=== PATIENT | female | born 1930 | race Caucasian/White ===

== ENCOUNTER 2016-10-17 04:47 | Inpatient (IN) | payer MEDICARE ==
[~2016-10-17 04:47] MED LIST: ADULT LOW DOSE81 M1 PO; ALPRAZOLAM OD0.25 MG; Alprazolam; CALCIUM; EQL FISH OIL 1,1 CA1; EYE VITAMIN; LEVOTHYROXINE; NORCO 5/325 TAB1 TAB PO; PREMARIN42.5 GM; VITAMIN D400 UNI1; XANAX1 MG; [UNRECOGNIZED DRUG - REMARK]
[2016-10-17] MEDS ORDERED: LEVAQUIN500 M1 PO (05:54)
[2016-10-17] MEDS ORDERED: XANAX1 M1 PO (05:55)
[2016-10-17] MEDS ORDERED: TOPROL XL25 M1 PO (05:55)
[2016-10-17] MEDS ORDERED: SYNTHROID25 MC1 PO (05:56)
[2016-10-17] MEDS ORDERED: SERTRALINE HCL25 M3 PO (05:57)
[2016-10-17 05:58] LABS: HCT-HEMATOCRIT 35.1 % (34.0-49.0); HGB-HEMOGLOBIN 11.8 gm/dl (12.0-15.5); IMMATURE GRANULOCYTES ABSOLUTE 0.01 tho/cmm (0-0.03); IMMATURE GRANULOCYTES PERCENT 0.3 % (0-0.3); LYMPH ABSOLUTE COUNT 0.4 tho/cmm (0.8-4.5); MCH (MEAN CORPUSCULAR HGB) 29.1 pg (28.0-32.0); MCHC MEAN CORPUSCULAR HGB CONC 33.6 % (32.0-36.0); MCV (MEAN CELL VOLUME) 86.7 fl (82.0-96.0); MEAN PLATELET VOLUME 10.1 cmc (9.4-12.4); MONO % 11.7 % (0-12); MONOCYTE ABSOLUTE COUNT 0.4 tho/cmm (0.0-1.2); NEUTROPHIL ABSOLUTE COUNT 2.9 tho/cmm (1.6-8.0); NEUTROPHIL-AUTOMATED 2.9 tho/cmm (1.6-8.0); PLATELET COUNT 148 tho/cmm (150-450); RED BLOOD COUNT 4.05 mil/cmm (4.00-5.20); RED CELL DISTRIBUTION WIDTH 13.6 % (12.4-16.4); WHITE BLOOD COUNT 3.7 tho/cmm (4.0-10.0)
[2016-10-17 06:17] LABS: ANION GAP 12 mmol/L (0-20); BLOOD UREA NITROGEN 13 mg/dl (6-24); CALCIUM 8.2 mg/dl (8.5-10.5); CARBON DIOXIDE-VENOUS 28 mmol/L (22-32); CHLORIDE 97 mmol/l (96-110); CREATININE 0.84 mg/dl (0.50-1.10); GLUCOSE 118 mg/dL (70-110); POTASSIUM 3.9 mmol/L (3.7-5.1); SODIUM 133 mmol/L (135-145); eGFR VALUE FOR BLACK 73 mL/Min
[2016-10-17 08:14] LABS: MAGNESIUM 1.7 mg/dl (1.8-2.6)
[2016-10-17 08:17] LABS: TSH-THYROID STIMULATING HORM. 3.77 uIU/ml (0.40-3.80)
[2016-10-17 12:01] LABS: URINE BILIRUBIN NEGATIVE (NEG); URINE BLOOD NEGATIVE (NEG); URINE GLUCOSE (UA) NEGATIVE (NEG); URINE KETONE NEGATIVE (NEG); URINE LEUKOCYTE ESTERASE POSITIVE (NEG); URINE NITRITE NEGATIVE (NEG); URINE PROTEIN NEGATIVE (NEG)
[2016-10-17 12:03] LABS: URINE APPEARANCE CLEAR; URINE COLOR PALE YELLOW
[2016-10-17] MEDS ORDERED: LEVOTHYROXINE25 MC3 PO (12:09)
[2016-10-17 12:16] LABS: URINE EPITHELIAL CELLS 0-1 /[HPF] (0-10); URINE RBC 0 /[HPF] (0-5)
[2016-10-18 05:41] LABS: BASO % 0.4 % (0-2); HCT-HEMATOCRIT 35.3 % (34.0-49.0); HGB-HEMOGLOBIN 11.5 gm/dl (12.0-15.5); LYMPH % 41.7 % (20-45); MCH (MEAN CORPUSCULAR HGB) 28.8 pg (28.0-32.0); MCHC MEAN CORPUSCULAR HGB CONC 32.6 % (32.0-36.0); MCV (MEAN CELL VOLUME) 88.3 fl (82.0-96.0); MONO % 7.9 % (0-12); MONOCYTE ABSOLUTE COUNT 0.2 tho/cmm (0.0-1.2); NEUTROPHIL ABSOLUTE COUNT 1.2 tho/cmm (1.6-8.0); NEUTROPHIL-AUTOMATED 1.2 tho/cmm (1.6-8.0); PLATELET COUNT 144 tho/cmm (150-450); WHITE BLOOD COUNT 2.4 tho/cmm (4.0-10.0)
[2016-10-18 05:53] LABS: ANION GAP 11 mmol/L (0-20); BLOOD UREA NITROGEN 10 mg/dl (6-24); CALCIUM 7.8 mg/dl (8.5-10.5); CARBON DIOXIDE-VENOUS 26 mmol/L (22-32); CHLORIDE 107 mmol/l (96-110); CREATININE 0.63 mg/dl (0.50-1.10); GLUCOSE 84 mg/dL (70-110); POTASSIUM 3.7 mmol/L (3.7-5.1); SODIUM 140 mmol/L (135-145); eGFR VALUE FOR BLACK >90 mL/Min
[2016-10-20 04:50] LABS: BASO % 0.7 % (0-2); EOS % 1.1 % (0-7); HCT-HEMATOCRIT 35.5 % (34.0-49.0); HGB-HEMOGLOBIN 11.6 gm/dl (12.0-15.5); IMMATURE GRANULOCYTES ABSOLUTE 0.01 tho/cmm (0-0.03); IMMATURE GRANULOCYTES PERCENT 0.4 % (0-0.3); LYMPH % 52.4 % (20-45); LYMPH ABSOLUTE COUNT 1.4 tho/cmm (0.8-4.5); MCH (MEAN CORPUSCULAR HGB) 28.6 pg (28.0-32.0); MCHC MEAN CORPUSCULAR HGB CONC 32.7 % (32.0-36.0); MCV (MEAN CELL VOLUME) 87.4 fl (82.0-96.0); MONO % 7.6 % (0-12); MONOCYTE ABSOLUTE COUNT 0.2 tho/cmm (0.0-1.2); NEUTROPHILS % 37.8 % (40-80); PLATELET COUNT 145 tho/cmm (150-450); RED BLOOD COUNT 4.06 mil/cmm (4.00-5.20); RED CELL DISTRIBUTION WIDTH 13.9 % (12.4-16.4); WHITE BLOOD COUNT 2.8 tho/cmm (4.0-10.0)
[2016-10-20] MEDS ORDERED: TAMIFLU75 M1 PO (15:43)
[2016-10-20] MEDS ORDERED: ELIQUIS2.5 M1 PO (15:44)
[2016-10-20] MEDS ORDERED: TYLENOL325 M2 PO (15:49)
== END 2016-10-20 17:00 | DRG 153 ==
LOC: EDMED 04:47 → EMR2 06:56 → PCUA 12:01
PROVIDERS: Emergency Medicine; Internal Medicine; Registered Nurse; ADMIT Hospitalist
DX: J11.1 Influenza due to unidentified influenza virus with other respiratory manifestations (principal); D61.818 Other pancytopenia; I48.0 Paroxysmal atrial fibrillation; E87.1 Hypo-osmolality and hyponatremia; I10 Essential (primary) hypertension; R55 Syncope and collapse; F32.9 Major depressive disorder, single episode, unspecified; E03.9 Hypothyroidism, unspecified; Z79.01 Long term (current) use of anticoagulants; F41.9 Anxiety disorder, unspecified; I95.1 Orthostatic hypotension
CPT/HCPCS: G8978-GP-CK; G8979-GP-CI; J0282; J0696; J1650; J1956; J7030